=== PATIENT | female | born 1970 | race Caucasian/White ===

== ENCOUNTER 2017-10-26 07:54 | Day surgery (SDC) | payer OTHER ==
[~2017-10-26] VITALS: Ht 165.1 cm; Wt 67.6 kg
[~2017-10-26 07:54] MED LIST: MULTIVITAMINS1 EAC7 PO
--- NOTE | 2017-10-26 09:20 | NUR ---
10/26/17 0920 Shanti Queen 0950-PATIENT ARRIVED TO PACU ON 3L NC O2 SAT 99% PATIENT REACTIVE TO VOICE AND REPOSITIONS SELF TO LAY ON BACK. ABDOMEN SOFT RR EVEN.
--- NOTE | 2017-10-26 10:30 | NUR ---
HAS NOT BEEN UP TO USE BATHROOM YET.
--- NOTE | 2017-10-26 10:50 | NUR ---
Patient remains in bed with HOB up slightly... up to about 20 degrees. Remains sleepy, awake and eyes open. IV fluids infusing slowly. at bedside.
--- NOTE | 2017-10-26 11:12 | NUR ---
EATING CRACKERS AND DRINKING MORE WATER. ALREADY DRANK 1 FULL CUP OF WATER.
--- NOTE | 2017-10-27 07:54 | OR ---
[facility] [address], [place] [address] Signed DATE OF OPERATION: 10/26/2017 SURGEON: Roxanne Arroyo MD PREOPERATIVE DIAGNOSES: 1. Change in bowel habits with loose stool and diarrhea. 2. Father with a history of polyps, late 50s. POSTOPERATIVE DIAGNOSES: 1. 4 mm polyp at 65 cm. 2. Minimal internal hemorrhoids. PROCEDURE: Colonoscopy with cold biopsies of the terminal ileum, random colon biopsies at 65 cm. ESTIMATED BLOOD LOSS: None. INDICATIONS: David is a 47-year-old female, I happen to know previously. She has been under a lot of stress lately with her two daughters in college and so forth. She has noticed a change in bowel habits for about a year with loose stool and diarrhea and irregular bowel movements. She had been to her primary care provider. She had been asked to see me for a colonoscopy. She told me her father actually had colonic polyps in his late 50s. Mom is also known to have diverticulosis. I gave David a pamphlet in the office on colonoscopy. We looked at that together along with the risks including, but not limited to gas, bloating, crampy abdominal pain, bleeding, perforation requiring surgery, and missed diagnosis. She also understands the need for IV conscious sedation. She had expressed understanding and wished to proceed. PROCEDURE NOTE: David was taken into our endoscopy suite and placed in the left lateral decubitus position. She was given divided doses of 10 mg of Versed and 200 mcg of fentanyl. Even then she woke up quickly and was frequently moving during the procedure. Consequently, she would be much better served with propofol in the future. A digital rectal exam had been performed and this was unremarkable. The adult colonoscope was introduced and advanced under direct visualization. David is slight of build and her sigmoid colon is somewhat narrow and it took some extra time to get through the sigmoid colon with extra sedation. The scope continued to buckle as we advanced it slowly, but surely up to the cecum itself with increasing doses of Versed and fentanyl. Fortunately, her prep was Electronically Signed By: ROXANNE ARROYO MD 10/27/17 0754 PATIENT NAME: DAVID WILDER OPERATIVE REPORT DATE OF : 70 REPORT #: [id number] PHYSICIAN: ROXANNE ARROYO MD PCP: KASI STERLING MD REPORT IS CONFIDENTIAL AND NOT TO BE RELEASED WITHOUT AUTHORIZATION [facility] [address], [place] [address] Signed quite excellent. We had just a brief few minutes where she was relaxed and the scope was able to move in and out of the cecum and around the right colon fairly readily. Consequently, I think she will do fine in the future with propofol. I went ahead and turned the scope into the terminal ilium about 8 cm and it looked fine. We took a biopsy at the terminal ileum and brought the scope back into the colon. As the scope was withdrawn, we took several random biopsies throughout the colon for pathologic review because of the history of diarrhea. We saw just a small 4 mm polyp at about 65 cm. It was easily removed with cold biopsy forceps. David again is slight of build and I had just enough room to retroflex the scope in the rectum and we could see she has some minimal internal hemorrhoid tissue. After this, the gas was suctioned out and colonoscope removed. Overall, David tolerated the procedure, but again, she will need propofol in the future. RECOMMENDATIONS: David will follow up in my office in 7 to 14 days to review her pathology results. Again, I would recommend propofol in the future given what we found today. Roxanne Arroyo MD ALB/MODL /[id number] cc: Kasi Sterling MD Copies: KASI STERLING MD ~ Electronically Signed By: ROXANNE ARROYO MD 10/27/17 0754 PATIENT NAME: DAVID WILDER OPERATIVE REPORT DATE OF : 70 REPORT #: [id number] PHYSICIAN: ROXANNE ARROYO MD PCP: KASI STERLING MD REPORT IS CONFIDENTIAL AND NOT TO BE RELEASED WITHOUT AUTHORIZATION
== END 2017-10-26 11:25 | disposition home or self-care (01) ==
LOC: OPS 07:54 → DS 07:54 → OPS 09:00
PROVIDERS: Colon & Rectal Surgery
PROC: 0DBE8ZZ Excision of Large Intestine, Via Natural or Artificial Opening Endoscopic (ICD-10-PCS; principal; 2017-10-26 09:00)
DX: K63.5 Polyp of colon (principal); K64.8 Other hemorrhoids; Z83.71 Family history of colonic polyps; Z88.1 Allergy status to other antibiotic agents
CPT/HCPCS: 99153; G0500; J2250; J3010; J7120

== ENCOUNTER 2025-02-22 22:55 | Emergency (ER) | payer OTHER ==
[~2025-02-22] VITALS: Ht 172.7 cm; Wt 75.0 kg
[~2025-02-22 22:55] MED LIST changes: +ALLEGRA ALLERG180 MG PO
[2025-02-22] MEDS ORDERED: ESTRADIOL0.5 MG PO (23:16)
[2025-02-22] MEDS ORDERED: ITRACONAZOLE100 MG PO (23:16)
[2025-02-22] MEDS ORDERED: PROGESTERONE100 MG PO (23:17)
[2025-02-22] MEDS ORDERED: DIPHTH,PERTUSS(ACELL),TET VAC 0.5 ML SYRINGE IM ONE (23:30)
[2025-02-22] MEDS ORDERED: LIDOCAINE/RACEPINEP/TETRACAINE 3 ML SYR TOP ONE (23:30)
[2025-02-22] MEDS ORDERED: KETOROLAC TROMETHAMINE 60 MG/2 ML VIAL IM ONE (23:30)
[2025-02-23] MEDS ORDERED: MUPIROCIN22 GM TOP
[2025-02-23 00:18] VITALS: BP 128/80
== END 2025-02-23 00:21 | disposition home or self-care (01) ==
LOC: ED 22:55
DX: S60.222A Contusion of left hand, initial encounter (principal); Z88.1 Allergy status to other antibiotic agents; Z79.890 Hormone replacement therapy; W01.0XXA Fall on same level from slipping, tripping and stumbling without subsequent striking against object, initial encounter; Y93.K1 Activity, walking an animal
CPT/HCPCS: 73130; 90715; J1885